=== PATIENT | female | born 1995 | race Caucasian/White ===

== ENCOUNTER 2017-08-03 17:12 | Inpatient (IN) | payer OTHER ==
[2017-08-03] MEDS ORDERED: Lidocaine 1% 30 ML SDV INJECT PRN (18:07)
[2017-08-03] MEDS ORDERED: Lactated Ringers 500 ML IV ONE (18:07)
[2017-08-03] MEDS ORDERED: Misoprostol 400 MCG (4 X 100 MCG TAB) RECTAL PRN (18:07)
[2017-08-03] MEDS ORDERED: Sodium Chloride 0.9% 10 ML Syringe FLUSH PRN (18:07)
[2017-08-03] MEDS ORDERED: Ondansetron 4 MG/2 ML SDV IV PRN (18:07)
[2017-08-03] MEDS ORDERED: Methylergonovine 0.2 MG/1 ML Amp IM PRN (18:07)
[2017-08-03] MEDS ORDERED: Acetaminophen 325 MG Tab PO PRN (18:07)
[2017-08-03] MEDS ORDERED: Carboprost Tromethamine 250 MCG/1 ML Amp IM PRN (18:07)
[2017-08-03] MEDS: Lactated Ringers 1,000 ML IV SCH (18:20)
[2017-08-03] MEDS ORDERED: fentaNYL 100 MCG/2 ML SDV ONE (20:09)
[2017-08-03] MEDS ORDERED: EPINEPHrine 1 MG/ML SDV ONE (20:10)
--- NOTE | 2017-08-03 20:36 | PCM.SN ---
- Free Text/Narrative Note: Intrathecal. sitting position, sterile prep and drape.1 % lidocaine w bicarb for skinwheal to L2 L3 interspace. Introducer, 24 ga pencan x 1 Pos CSF neg heme , neg parasthesia. 0.1 ml pf 1:1000 epi, 0.4 ml pf ns , 20 mcg pf sufenta, 30 mcg pf fentanyl and 6 mg of 0.75% pf bupivacaine injected after CSF aspiration. Pt to R lateral side. Procedure time 2009 to 2034
[2017-08-04] MEDS: Lactated Ringers 1,000 ML IV SCH ×2 (00:40→04:18)
[2017-08-04] MEDS ORDERED: fentaNYL 100 MCG/2 ML SDV IVPUSH STA (01:03)
[2017-08-04] MEDS ORDERED: Oxytocin/Normal Saline 30 UNIT/500 ML BAG IV SCH (02:30)
[2017-08-04] MEDS ORDERED: Simethicone 80 MG Tab.Chew PO PRN (03:01)
[2017-08-04] MEDS ORDERED: Benzocaine/Menthol 20%-0.5% Spray 56 GM Canister TOP PRN (03:01)
[2017-08-04] MEDS ORDERED: Oxytocin 10 Units/1 ML SDV IM PRN (03:01)
[2017-08-04] MEDS ORDERED: Sodium Chloride 0.9% 10 ML Syringe FLUSH PRN (03:01)
[2017-08-04] MEDS: Ibuprofen 800 MG Tab PO PRN ×3 (04:48→19:49)
--- NOTE | 2017-08-04 09:04 | HP ---
PATIENT IDENTIFICATION: Eli Ahumada is a 22-year-old, G1, P0, intrauterine at 39 and 1/7 weeks by 7-week ultrasound, presents with contractions. HISTORY OF PRESENT ILLNESS: The patient states she had cramping-like contractions started about 11:00 last night, increasing in frequency and intensity to the point that they are coming every 6 to 7 minutes, felt in the lower abdomen, radiating to the back, and now worsening over time to the point that they are coming every 2 to 4 minutes. They are strong enough that she is breathing through them. Associated with this was some questionable leaking with an initial nurse evaluation revealing Nitrazine negative. To put this in context, patient is GBS negative. She has been using some pain pills during the . Last dose of Percocet was 2 days ago. Records were called for, reviewed as below, and supplemented by patient history. ANTEPARTUM LABS: ABO blood type O positive, negative antibody. Rubella immune. Syphilis antibody is nonreactive. Negative hepatitis B surface antigen, hep C, HIV, GC, and Chlamydia. Wet prep initially had some clue cells. BV-treatment recommended in the past. One-hour GTT was 101. GBS was negative in the third trimester. ALLERGIES: None. MEDICATIONS: 1. vitamins. 2. Percocet, last dose 2 days ago, this has been for some chronic pain. PAST MEDICAL/PAST SURGICAL HISTORY: Remarkable for having foot surgery on the right, [id number] on the right toe, as well as having migraine headache without aura, history of chickenpox and being blood type O positive. FAMILY HISTORY: Heart disease in maternal grandfather. Hypertension in mother. Hypotension in father. Negative family history of breast cancer, uterine cancer, vulvar cancer, ovarian cancer, colon cancer, inflammatory bowel disease, colon polyps, anesthesia or bleeding problems, or defects. SOCIAL HISTORY: Significant other is Kevin. 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 Denies any alcohol or drug use. Denies smoking. REVIEW OF SYSTEMS: Otherwise reviewed and felt to be noncontributory. OBJECTIVE: Vital Signs: Blood pressure 126/81, heart rate 94, temperature 98. Appearance: Female, appears her stated age, acting appropriate for age, nontoxic appearance. Breathing through occasional contractions. Answering questions appropriately in between. HEENT: Head atraumatic. EOMs intact. PERRLA. No scleral icterus. Facial piercing is noted. Neck: No obvious masses or lesions. Lungs: Clear to auscultation bilaterally. No increased work of breathing. Heart: S1 and S2. Regular rate and rhythm. Abdomen: Gravid. Lam's indeterminate. Nontender. Nondistended. Bowel sounds positive. No other organomegaly, pulsatile masses, or obvious hernias. No rebound, rigidity, or guarding. Genitourinary: Nurse evaluation revealed her to be 4 cm, possible leaking of fluid shortly there after the exam. Extremities: No peripheral edema. Deep tendon reflexes 2/4 bilaterally and symmetric in lower extremities. Psychiatric: Mood and affect are congruent. Judgment and insight are intact. Skin: Without cyanosis, clubbing, or jaundice. Pelvic: heart tones in the 130s to 140s range, felt to be reassuring. Tocometer reveals contractions currently every 2 to 4 minutes apart. ASSESSMENT/PLAN: 1. Intrauterine at 39 and 2/7 weeks by 7 and 1/7 weeks ultrasound. 2. Active labor, advancing cervical dilation, suspect spontaneous rupture of membranes. We will re-evaluate. 3. Group B Streptococcus negative. 4. Bacterial vaginosis during the . 5. G1, P0. PLAN: The patient will be admitted due to her contractions, living far from the hospital, advancing cervical dilation, and suspected spontaneous rupture of membranes. We will do further evaluation. The patient understands and agrees with the above treatment and plan. We will re-evaluate her cervix and consider artificial rupture of membranes as well. [facility] /[id number]
--- NOTE | 2017-08-04 09:22 | PN ---
DATE: 08/03/2017 SUBJECTIVE: Patient still feels her contractions. She is questionably leaking. OBJECTIVE: heart tones are in the 130s to 140s range. Tocometer reveals contractions every 2 to 4 minutes. Vaginal exam reveals her to be 4 to 5 cm. Bag of water felt and subsequently artificial rupture of membranes done with amnio hook after discussion with the patient yielding copious amounts of clear fluid. ASSESSMENT: Intrauterine at 39 and 2/7 weeks by 7 and 1/7 weeks, in active labor, now status post artificial rupture of membranes with group B streptococcus negative status, history of BV in a G1, P0, who lives far from the hospital. PLAN: We will continue to follow clinically and closely. The patient understands and agrees with the above treatment and plan. [facility] /[id number]
--- NOTE | 2017-08-04 09:49 | DEL ---
DATE: 08/04/2017 PREOPERATIVE DIAGNOSES: 1. Intrauterine 39 and 3/7 weeks by 7 and 1/7 week ultrasound. 2. Active labor upon admit. 3. Group B Streptococcus negative. 4. History of bacterial vaginosis in the . 5. Lives far from the hospital. 6. Gestational thrombocytopenia with platelets of 141,000. 7. 1, para 0. POSTOPERATIVE DIAGNOSES: 1. Intrauterine 39 and 3/7 weeks by 7 and 1/7 week ultrasound- delivered. 2. Active labor upon admit. 3. Group B Streptococcus negative. 4. History of bacterial vaginosis in the . 5. Lives far from the hospital. 6. Gestational thrombocytopenia with platelets of 141,000. 7. 1, para 0. 8. Left labia minora laceration, 3 cm, bleeding and repaired. 9. Thick meconium fluid. PROCEDURE PERFORMED: NST, artificial rupture membranes on 08/03 followed by spontaneous vaginal delivery with left labia minora repair on 08/04/2017. ANESTHESIA/ANALGESIA: The patient did receive an intrathecal in the first stage of labor and fentanyl near the end of the first stage of labor and then 1% lidocaine without epinephrine, approximately 10 mL, for local anesthetic for repair. ESTIMATED BLOOD LOSS: 300 mL. FINDINGS: Male, scores and weight pending. SUMMARY OF EVENTS: The patient is a 22-year-old, G1, P0 intrauterine at 39 and 2/7 weeks upon admission and 39 and 3/7 weeks on date of delivery who presented in active labor. She underwent the above procedures, then continued into labor, got an intrathecal in the first stage of labor, some fentanyl once that wore off near the end of the first stage of labor, was found to be complete and started pushing. I was called to the room, donned sterile gloves and subsequently with patient pushing, vertex was delivered in DANIELA presentation, followed by anterior and posterior shoulder as well as the rest of the without difficulty. Thick meconium fluid was noted. Mouth and nares were suctioned. Cord was doubly clamped and cut, and infant was brought over to the warmer. Then, approximately 10 mL of cord blood was obtained for labs. Placenta then delivered gentle cord traction fundal massage within 15 minutes. Perineum, vagina, and perirectal areas were examined and noted to have a left labial minora laceration that was about 3 cm, bleeding, subsequently anesthetized with lidocaine and repaired in the usual fashion using 3-0 Vicryl. Right labia minora had a small abrasion nonbleeding and non-repaired after discussion with the patient. Mother and are currently stable at time of dictation. [facility] /[id number]
--- NOTE | 2017-08-04 09:58 | OBOUT ---
DATE: 08/03/2017 DATE AND TIME OF NST: Date: 08/03/2017. Time: 1720 to 1740. REASON FOR NST: 1. Intrauterine at 39 and 3/7 weeks by 7 and 1/7 weeks ultrasound, active labor, advancing cervical dilation, questionable spontaneous rupture of membranes. 2. GBS negative. 3. History of BV. 4. G1, P0. NST INTERPRETATION: During this time period, heart tone baseline is approximately 130 to 135, and there are at least two 15 x 15 beat per minute accelerations, making this strip reactive. It is also noted to be reassuring. Tocometer reveals potential of 2 to 3 contractions felt by the patient. ASSESSMENT AND PLAN: 1. Nonstress test, reactive and reassuring. 2. Tocometer with contractions. PLAN: Please see admit history and physical for further details. [facility] /[id number]
[2017-08-04] MEDS: Prenatal Multivitamin with Calcium/Folic Acid/Iron Tab PO SCH (11:54)
[2017-08-04] MEDS: Docusate Sodium 100 MG Cap PO PRN ×2 (11:54→19:50)
[2017-08-04] MEDS ORDERED: hydrOXYzine HCl 25 MG Tab PO ONE (13:11)
[2017-08-04] MEDS ORDERED: fentaNYL 100 MCG/2 ML SDV ITHECAL ONE (14:05)
[2017-08-04] MEDS: Acetaminophen/oxyCODONE 325-5 MG Tab PO PRN ×2 (14:27→21:28)
[2017-08-04] MEDS: Zolpidem 5 MG Tab PO PRN ×2 (19:49→21:31)
[2017-08-05] MEDS: Acetaminophen/oxyCODONE 325-5 MG Tab PO PRN (06:14)
[2017-08-05] MEDS: Ibuprofen 800 MG Tab PO PRN (06:15)
[2017-08-05] MEDS: Prenatal Multivitamin with Calcium/Folic Acid/Iron Tab PO SCH (08:49)
[2017-08-05] MEDS: Docusate Sodium 100 MG Cap PO PRN (08:49)
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
== END 2017-08-05 09:15 | disposition home or self-care (01) | DRG 775 ==
LOC: DL.OBCHECK 17:12 → DL.OB 17:50 → OBSVTOIN 08-04 02:30 → DL.MS 08-04 11:55
PROVIDERS: ADMIT Family Medicine; ATTEND Family Medicine
PROC: 10E0XZZ Delivery of Products of Conception, External Approach (ICD-10-PCS; principal; 2017-08-04)
PROC: 0HQ9XZZ Repair Perineum Skin, External Approach (ICD-10-PCS; 2017-08-04)
PROC: 00HU33Z Insertion of Infusion Device into Spinal Canal, Percutaneous Approach (ICD-10-PCS; 2017-08-04)
PROC: 3E0R3BZ Introduction of Anesthetic Agent into Spinal Canal, Percutaneous Approach (ICD-10-PCS; 2017-08-04)
DX: O99.12 Other diseases of the blood and blood-forming organs and certain disorders involving the immune mechanism complicating childbirth (principal); O99.344 Other mental disorders complicating childbirth; O77.0 Labor and delivery complicated by meconium in amniotic fluid; O70.0 First degree perineal laceration during delivery; D69.6 Thrombocytopenia, unspecified; F41.9 Anxiety disorder, unspecified; Z3A.39 39 weeks gestation of pregnancy; Z37.0 Single live birth
CPT/HCPCS: 36415; 59300; 59409; 85027; A9270-GY; J2405; J2590; J3010; J7120